=== PATIENT | male | born 1965 | race Two or more races ===

== ENCOUNTER → 2025-02-08 | Outpatient (CLI) | payer MEDICAID, SELFPAY ==
--- NOTE | 2025-02-08 16:00 | XR_ITS ---
Examination: Retroperitoneal ultrasound, complete Technique: Multiple high resolution grayscale images of the retroperitoneum obtained, including kidneys and bladder. Exam date and time:February 08, 2025, 1603 hours INDICATIONS: Acute renal insufficiency on laboratory examination this week FINDINGS: Right kidney 12.5 cm cortex 1.3 cm 8mm right renal cyst Left kidney 11.1 cm cortex 2.3 cm 5 mm lower pole calculus Moderate bilateral renal scar formation Contracted urinary bladder Prostate 5.0 x 4.4 x 4.5 cm, possible mass in the urinary bladder 2.0 x 2.1 x 1.9 cm IMPRESSION: Moderate bilateral renal scar formation 5 mm lower pole nonobstructing left renal calculus Recommend CT urogram follow-up to differentiate enlarged prostate protruding into the bladder versus bladder mass
== END | disposition home or self-care (01) ==
PROVIDERS: PCP Internal Medicine; Referring Provider Internal Medicine; Visit Provider Internal Medicine
DX: N28.89 Other specified disorders of kidney and ureter (principal); N20.0 Calculus of kidney
CPT/HCPCS: 76770

== ENCOUNTER → 2025-03-09 | Outpatient (CLI) | payer MEDICAID, SELFPAY ==
--- NOTE | 2025-03-09 13:30 | XR_ITS ---
Examination: CT abdomen and pelvis without contrast. Coronal 3-D reconstructions. Sagittal 2-D reconstructions. Date and time of exam:March 09, thousand 25, 1325 hrs. Indications: 5 mm calculus left kidney, renal scar formation CTDI: vol (mGy): 8.14 DLP: (mGycm): 486 Technique: Axial images of the abdomen have been obtained, 3 mm slice thickness Intravenous contrast material has not been administered. Low dose protocols were performed. One or more of the following dose reduction techniques were used; automated exposure control, adjustment of the mA and/or KV according to patient size, use of iterative reconstruction technique. Findings: No focal liver or splenic lesions Cholelithiasis No pancreatic mass. Moderate renal scar formation, no hydronephrosis or ureteral calculi 20 mm fat-containing hernia No pericecal inflammatory change Mild urinary bladder wall thickening Prostatomegaly AP dimension 4 cm Fat-containing hernias Impression: Moderate bilateral renal parenchymal scar formation, no hydronephrosis or ureteral calculi Cystitis pattern
== END | disposition home or self-care (01) ==
PROVIDERS: Referring Provider Internal Medicine; Visit Provider Internal Medicine
DX: N28.89 Other specified disorders of kidney and ureter (principal)
CPT/HCPCS: 74176